=== PATIENT | male | born 1940 | race Caucasian/White ===

== ENCOUNTER 2021-07-26 14:33 | Outpatient (REF) | payer MEDICARE, SELFPAY ==
--- NOTE | 2021-07-27 11:56 | MHC.AU.ANO ---
Adult Audiological Evaluation Date of Visit: 07/26/21 Motorized Squad Captain Used: Not Applicable Reason for Appointment: Audiologic re-evaluation due to question of change in hearing ability. Has hearing been tested previously?: Yes Previous Hearing Test Results: 03/04/2019 [facility] Normal to borderline normal hearing thresholds 250-1000 Hz, sloping to a moderately-severe high frequency sensorineural hearing loss bilaterally. The left ear threshold at 1000 Hz was 15 dB poorer than the right ear. Speech understanding was 92% for both ears at 65 dB HL. Ear History: Unremarkable Medical History: Medical History: Heart problems with history of heart attacks (most recent occurred approximately 5 years ago), high cholesterol Medication List: Furosemide (known to be a potentially ototoxic medication), Pantoprazole, Warfarin, Atorvastatin, Aspirin, Digoxin Otoscopy: Right Ear: Partially occluded with cerumen Left Ear: Unremarkable Tympanometry: Tympanometry performed due to: To assess integrity of the middle ear system Right Ear: Normal Middle Ear System (Type A) Left Ear: Normal Middle Ear System (Type A) Otoacoustic Emissions Not performed at today's visit due to known bilateral sensorineural hearing loss Hearing Evaluation: Transducer(s) Used: Insert Earphones, Bone Conduction Method: Conventional Audiometry Stimuli Used: Pure Tones Right Ear: Description of Hearing: Normal to borderline normal hearing thresholds at 250-1500 Hz, dropping to a moderately-severe high frequency sensorineural hearing loss. Left Ear: Description of Hearing: Normal hearing thresholds 250 and 500 Hz, dropping to a moderately-severe high frequency sensorineural hearing loss. Speech Recognition Threshold (SRT): Method Used: Monitored Live Voice Stimuli Used: Spondee Words Right Ear: 10 dB HL Left Ear: 20 dB HL Word Discrimination: Method: Recorded Lists Word Lists Used: NU-6 Right Ear: 76% at 55 dB HL 96% at 60 dB HL Left Ear: 88% at 65 dB HL Comparison: Compared to most recent evaluation: Overall thresholds have decreased 5 dB for both ears with a 10 dB decrease for the left ear at 1000 Hz. Overall speech discrimination is stable. Recommendations: Patient does not feel they are ready for amplification at this time. Discussed and provided a handout regarding communication strategies to use to improve speech understanding. Advise using the [id number] drops Ear Wax M.D. to control cerumen accumulation. May need to consider cerumen removal by a physician if the drops do not dissolve the cerumen. Audiological re-evaluation in one year. Will send a reminder card. Diagnosis: Primary Diagnosis: H90.3 Bilateral Sensorineural Hearing Loss Services Performed: Comprehensive Audiological Evaluation (CPT 37365) Tympanometry (CPT 40188) Signature: Provider: Buddy Lowe, MINH-A
== END 2021-07-26 14:34 | disposition home or self-care (01) ==
LOC: HO.SH 14:33
PROVIDERS: Visit Provider Family Medicine
DX: H90.3 Sensorineural hearing loss, bilateral (principal)
CPT/HCPCS: 92557; 92567

== ENCOUNTER 2021-11-16 10:25 | Outpatient (REF) | payer MEDICARE, SELFPAY | END 2021-11-16 10:26 | disposition home or self-care (01) | LOC: HO.HAP 10:25 | PROVIDERS: Visit Provider Nurse Practitioner Family | DX: Z13.89 Encounter for screening for other disorder (principal) ==

== ENCOUNTER 2021-11-17 10:57 | Outpatient (REF) | payer SELFPAY ==
--- NOTE | 2021-11-17 13:33 | MHC.AU.HFU ---
Hearing Instrument Follow-Up- Binaural Date of Visit: 11/17/21 Follow-Up Summary: Fit with Trial Audeo P R aids programmed to LEVEL 50 product with #2 standard receivers and medium open domes. Removed the retention tails as they confused the patient. Ran feedback test. All features on default and deactivated volume control to make aids automatic. Had to instruct and have patient practice inserting the aids many times as he was having difficulty. Improved with practice. also practiced insertion. Reviewed chief architect use. Sign loaner agreement form. Recommendations: Recommendations (Other): Scheduled appointment for 11/28/2021. WILL CHANGE TRIAL AIDS TO LEVEL 90 AND TRY FOR ANOTHER WEEK. Diagnosis Code(s): Primary Diagnosis: H90.3 Bilateral Sensorineural Hearing Loss Services Performed: FREDERICK Non-Quantity Charges: HANC: NonBillable Event Signature: Provider: Bernabe Lowe, CCC-A
== END 2021-11-17 10:58 | disposition home or self-care (01) ==
LOC: HO.HAP 10:57
PROVIDERS: Visit Provider Nurse Practitioner Family
DX: Z13.89 Encounter for screening for other disorder (principal)

== ENCOUNTER 2021-11-28 13:06 | Outpatient (REF) | payer SELFPAY | END 2021-11-28 13:07 | disposition home or self-care (01) | LOC: HO.HAP 13:06 | PROVIDERS: Visit Provider Nurse Practitioner Family | DX: Z13.89 Encounter for screening for other disorder (principal) ==

== ENCOUNTER 2021-12-15 13:15 | Outpatient (REF) | payer SELFPAY ==
--- NOTE | 2021-12-18 13:13 | MHC.AU.HFU ---
Hearing Instrument Follow-Up- Binaural Date of Visit: 12/15/21 Follow-Up Summary: Patient reports he does not think the level 90 Audeo P aids are different enough from the 50 level during the past 2 weeks. The kitchen noises are just as sharp. He has not been in any noisy environments, but will be going to a restaurant over the weekend. Increased noise features and used auto fine tuning for bright/shrill decreasing one step. Recommendations: Recommendations (Other): Patient will call on 12/18/21 to discuss which level of technology to order. WILL INITIALLY FIT WITH DOMES AND TAKE IMPRESSIONS FOR [facility]SHELLS AT [facility]. Diagnosis Code(s): Primary Diagnosis: H90.3 Bilateral Sensorineural Hearing Loss Signature: Provider: Bernabe Lowe, CCC-A
== END 2021-12-15 13:16 | disposition home or self-care (01) ==
LOC: HO.HAP 13:15
PROVIDERS: Visit Provider Nurse Practitioner Family
DX: Z13.89 Encounter for screening for other disorder (principal)

== ENCOUNTER 2022-01-01 12:16 | Outpatient (REF) | payer SELFPAY | END 2022-01-01 12:17 | disposition home or self-care (01) | LOC: HO.HAP 12:16 | PROVIDERS: Visit Provider Family Medicine | DX: Z46.1 Encounter for fitting and adjustment of hearing aid (principal); H90.3 Sensorineural hearing loss, bilateral | CPT/HCPCS: 92591; V5261; V5299 ==

== ENCOUNTER 2022-01-26 11:39 | Outpatient (REF) | payer SELFPAY ==
--- NOTE | 2022-01-26 12:55 | MHC.AU.HFU ---
Hearing Instrument Follow-Up- Binaural Date of Visit: 01/26/22 Right Ear: Retail Management Trainee: Phonak Model: Audeo P90-R Serial Number: [id number] Repair Warranty: 03/19/2025 Loss and Damage Warranty: 03/19/2025 Battery Size: Rechargeable Color: Silver [employer]urt [employer] Operator: #2M Type of Dome: Type of Mold: Phonak Canal lock c-shell #[id number] warranty 05/10/2022 Type of Wax Guard: CeruShield Dispensed By: [facility] Date of Fittin01/01/2022 Left Ear: Retail Management Trainee: Phonak Model: Audeo P90-R Serial Number: [id number] Repair Warranty: 03/19/2025 Loss and Damage Warranty: 03/19/2025 Battery Size: Rechargeable Color: Silver [employer] Operator: #2 M Type of Mold: # [id number] Phonak canal lock c-shell warranty 05/10/2022 Type of Wax Guard: CeruShield Dispensed By: [facility] Date of Fittin01/01/2022 Follow-Up Summary: Fit the binaural canal lock c-shells. Changed acoustic parameters and Re-ran feedback test. Patient is now getting much more high frequency gain and no feedback. Datalogging only showed 1.5 hours average wearing time over past month. Patient reports he doesn't wear when home and alone. Extensively counseled about the need for every day, all day use for best benefit. Also is having some trouble using his home phone and wearing sunglasses. Practiced phone use moving the phone to be over his hearing aid microphone, OR to use the speaker phone. Also practiced putting sunglasses on with the hearing aids. Scheduled F/U appointment for 02/09/2022. He will cancel if doing well. Recommendations: Hearing instrument follow-up or maintenance as needed. Please contact our clinic with any questions or concerns. Diagnosis Code(s): Primary Diagnosis: H90.3 Bilateral Sensorineural Hearing Loss Signature:Provider: Buddy Lowe, [facility]
== END 2022-01-26 11:40 | disposition home or self-care (01) ==
LOC: HO.HAP 11:39
PROVIDERS: Visit Provider Nurse Practitioner Family
DX: Z13.89 Encounter for screening for other disorder (principal)

== ENCOUNTER 2022-02-09 09:56 | Outpatient (REF) | payer SELFPAY | END 2022-02-09 09:57 | disposition home or self-care (01) | LOC: HO.HAP 09:56 | PROVIDERS: Visit Provider Nurse Practitioner Family | DX: Z13.89 Encounter for screening for other disorder (principal) ==

== ENCOUNTER 2022-03-21 10:35 | Outpatient (REF) | payer SELFPAY | END 2022-03-21 10:36 | disposition home or self-care (01) | LOC: HO.HAP 10:35 | PROVIDERS: Visit Provider Family Medicine | DX: Z13.89 Encounter for screening for other disorder (principal) ==

== ENCOUNTER 2025-01-29 10:59 | Outpatient (REF) | payer SELFPAY ==
--- NOTE | 2025-01-29 12:21 | MHC.AU.HA3 ---
Hearing Instrument Follow-Up- Binaural Date of Visit: 01/29/25 Right Ear: Make, Model, Color, Serial Number: [id number] Project Manager Senior Repair Warranty: 03/19/2025 Project Manager Senior Loss and Damage Warranty: 03/19/2025 [facility] Service Plan: 03/19/25 Battery Size: Rechargeable Supervisor Frame Assembly/Slim Tube: #2M [place]/Dome/CShell/SlimTip:Phonak Canal lock c-shell #[id number] Warranty 05/10/2022 Type of Wax Guard: CeruShield Dispensed By: [facility] Date of Fittin01/01/2022 Left Ear: Make, Model, Color, Serial Number: [id number] Project Manager Senior Repair Warranty: 03/19/2025 Project Manager Senior Loss and Damage Warranty: 03/19/2025 [facility] Service Plan: 03/19/25 Battery Size: Rechargeable Supervisor Frame Assembly/Slim Tube: #2 M [place]/Dome/CShell/SlimTip: [id number] Phonak canal lock c-shell warranty 05/10/2022 Type of Wax Guard: CeruShield Dispensed By: [facility] Date of Fittin01/01/2022 Follow-Up Summary: Lucas is seen today reporting that he has not worn the hearing aids for about a year and did not wear them much prior to that. Notes loud sounds have always been too bothersome (children, music, restaurants). Reports he has come in because Alicia told him to come in before his warranty expires. Wants to make sure the volume is set right. 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 Recommended updated evaluation as this has not been done since 2020, advised to contact PCP for PO. Hearing aids to be adjusted with counseling and review of hearing aid use when back from repair, preferably in conjunction with evaluation. Recommendations: Recommendations: Patient will be contacted when materials have arrived. Return for evaluation and hearing aid fish bait picker. Diagnosis Code(s): Primary Diagnosis: H90.3 Bilateral Sensorineural Hearing Loss Signature: Provider: Brett Miller, [facility]
== END 2025-01-29 11:00 | disposition home or self-care (01) ==
LOC: HO.HAP 10:59
PROVIDERS: Visit Provider Family Medicine
DX: Z13.89 Encounter for screening for other disorder (principal)

== ENCOUNTER 2025-02-11 09:09 | Outpatient (REF) | payer MEDICARE, SELFPAY ==
--- OUTSIDE RECORDS SUMMARY | 2025-02-11 09:50 | XMS_ITS | Encounter Summary ---
Author Organization [facility] Address [address] [place] [address] Phone Care Team Providers Care Mobile Home Technician Name Role Phone Esvin Reardon MD Unavailable [phone] Heber Romero MD, MS Unavailable [phone] Patti Garnett NP Unavailable [phone] Patti Garnett NP Primary Care Provider Calderon Batista DO Primary Care Provider Encounter Details Date Type Department Care Team (Latest Contact Info) Description 09/23/2018 Transcribe Orders [facility] [address] [place] [address] [place] [address] [place] [address] [place] [address] Poisoning by cardiac-stimulant glycosides and drugs of similar action, accidental (unintentional), initial encounter (Primary Dx) Social History Tobacco Use Types Packs/Day Years Used Date Smoking Tobacco: Never Smokeless Tobacco: Never Sex and Gender Information Value Date Recorded Sex Assigned at Not on file Gender Identity Not on file Sexual Orientation Not on file documented as of this encounter Plan of Treatment Not on file documented as of this encounter Results * Digoxin level (09/23/2018 10:19 AM EST) DIGOXIN 1.3 0.9 - 2.0 ng/mL [facility] Blood 09/23/2018 10:1 9 AM EST 09/23/2018 10:24 AM EST Bruna Ena WARD LAB BLOOD ORDERABLES [facility] [address] [place] [address] documented in this encounter Visit Diagnoses Diagnosis Poisoning by cardiac-stimulant glycosides and drugs of similar action, accidental (unintentional), initial encounter- Primary documented in this encounter Additional Health Concerns Infection Onset Date Last Indicated Resolved Time CoV-Risk 11/19/2020 11/19/2020 11/29/2020 1:24 AM EST documented as of this encounter Care Teams Mobile Home Technician Relationship Specialty Start Date End Date Patti Garnett, [employer] [address] [place] [address] PCP - General 06/09/19 07/31/20 Calderon Batista DO [address] [place] [address] PCP - General Family Medicine 08/01/20 Esvin Reardon MD 22 [facility] [address] [place] [address] Historical LMR Provider 08/19/17 2 Heber Romero MD, MS [address] [place] [address] Historical LMR Provider 08/19/17 11/11/21 Patti Garnett, [employer] [address] [place] [address] [place] [address] Historical LMR Provider 08/19/17 documented as of this encounter Additional Source Comments The information contained in this document represents components of the legal health record. It is not the complete legal health record.[facility]
--- OUTSIDE RECORDS SUMMARY | 2025-02-11 09:50 | XMS_ITS | Clinical Summary ---
Author Organization [facility] Address [address] [place] [address] Phone Care Team Providers Care Clay Pigeon Loader Name Role Phone Calderon Batista DO Primary Care Provider [phone] Allergies Active Allergy Reactions Criticality Noted Date Comments Meperidine Anaphylaxis,Vomiting High 10/24/2017 Medications Medication Sig Dispensed Refills Start Date End Date Status aspirin 81 MG EC tablet Take 81 mg by mouth daily. Active furosemide (LASIX) 20 MG tablet Take 40 mg by mouth 2 (two) times a day. Active PANTOPRAZOLE SODIUM (PANTOPRAZOLE ORAL) Take 40 mg by mouth 2 (two) times a day. Active ATORVASTATIN CALCIUM (ATORVASTATIN ORAL) Take 40 mg by mouth daily. Active warfarin (COUMADIN) 1 MG tablet Take 1 mg by mouth as directed. Active digoxin (LANOXIN) 250 mcg tabletIndications:0.25 mg Take 125 mcg by mouth daily. Indications: 0.25 mg Active warfarin (COUMADIN) 5 MG tablet Take 5 mg by mouth as directed. Active gabapentin (NEURONTIN) 100 MG capsule Take 200 mg by mouth daily. Active losartan (COZAAR) 50 MG tablet Take 50 mg by mouth daily. Active Active Problems Problem Noted Date Diagnosed Date Coronary artery disease invo lving [place] coronary artery of [place] heart without angina pectoris 10/09/2018 Assessment & Plan (10/09/2018 5:39 PM EST): His CAT scan demonstrates nothing of concern that requires follow-up other than extensive coronary artery calcifications. We discussed this and he has known coronary artery disease. He will discuss it with Dr. Boone when he gets a chance. Patient is asymptomatic from a cardiac standpoint. Abnormal chest x-ray 09/09/2018 Assessment & Plan (09/09/2018 9:49 AM EST): Will plan for CT chest with IV contrast in 3 weeks after treatment with antibiotics. Patient has a history suggestive of bronchiectasis but the last CAT scan I seen does not demonstrated. That was not high resolution however. Major hemoptysis 09/09/2018 Assessment & Plan (10/09/2018 5:38 PM EST): I suspect he has bronchitis and an inclination to bleed based on his aspirin and Coumadin use. I do not believe I need to follow this any further. These call me if there has been a change in his status. Assessment & Plan (09/09/2018 9:49 AM EST): Suspect hemoptysis is related to smoldering infection in the setting of anticoagulation. Will treat with Augmentin for 10 days. Suspicious for anaerobes probably from dentition given the subacute nature of his illness. Current use of silver solution mixer anticoagulation 018 Assessment & Plan (10/09/2018 5:39 PM EST): Recommend holding anticoagulation if hemoptysis returns. Assessment & Plan (09/09/2018 9:50 AM EST): Would recommend holding anticoagulation if the hemoptysis continues or progresses. Will check a CBC prior to our next visit. Family History Medical History Relation Comments COPD Father Coronary artery disease Mother Family h istory of cardiovascular disease Relation Status Comments Father Mother Social History Tobacco Use Types Packs/Day Years Used Date Smoking Tobacco: Never Smokeless Tobacco: Never Alcohol Use Standard Drinks/Week Comments Not Currently 0 (1 standard drink = 0.6 oz pur e alcohol) Education Answer Date Recorded Are you interested in more education? Not on yung e 02/28/2023 Are you concerned about learning? Not on file 02/28/2023 No 02/28/2023 No 02/28/2023 Digital Access Answer Date Recorded No 04/01/2023 No 04/01/2023 Reliable internet access at home? Not on file 04/01/2023 Device with a working camera? Not on file Intimate Partner Violence Answer Date R ecorded Are you denied basic needs s uch as food, clothing, or medical care? No 07/05/2023 In the past 12 months have y ou been in a relationship with a person who hurts, threatens, or tries to control you? No 07/05/2023 Are you denied basic needs s uch as food, clothing, or medical care? No 07/05/2023 In the past 12 months have y ou been in a relationship with a person who hurts, threatens, or tries to control you? No 07/05/2023 Sex and Gender Information Value Date Recorded Sex Assigned at Not on file Gender Identity Not on file Sexual Orientation Not on file Last Filed Vital Signs Vital Sign Reading Time Taken Comments Blood Pressure 115/63 07/09/2023 8:39 AM EDT Pulse 56 07/09/2023 8:39 AM EDT Temperature 36.4 ??C (97.5 ??F) 07/09/2023 7:42 AM ED T Respiratory Rate 18 07/09/2023 8:24 AM EDT Oxygen Saturation 97% 07/09/2023 8:39 AM EDT Inhaled Oxygen Concentration - - Weight 90.7 kg (200 lb) 07/05/2023 1:12 PM EDT Height 182.9 cm (6') 07/05/2023 1:12 PM EDT Body Mass Index 27.12 07/05/2023 1:12 PM EDT Plan of Treatment Health Maintenance Due Date Last Done Comments DEPRESSION SCREENING 1952 HEPATITIS B SCREENING 1958 LIPID PANEL 1958 RSV VACCINE (1 - 1-dose 75+ series) 2015 CREATININE LEVEL 10/02/2019 10/02/2018 POTASSIUM LEVEL 10/02/2019 10/02/2018 INFLUENZA VACCINE (#1) 2024 3, 10/05/2022, 09/12/2021, Additional history exists COVID-19 VACCINE (2023- season) 2024 08/08/2022, 02/08/2022, 06/30/2021, Additional history exists Adult Td,Tdap Booster 09/28/2025 09/28/2015, 006 PNEUMOCOCCAL VACCINES (50+ years) Completed 08/15/2018, 09/28/2015, 08/26/2000 ZOSTER VACCINES Completed 05/10/2021, 05/2021, 02/20/2011 HEPATITIS A VACCINES Aged Out No long er eligible based on patient's age to complete this topic HEPATITIS B VACCINES Aged Out No long er eligible based on patient's age to complete this topic HIB VACCINES Aged Out No longer eligi ble based on patient's age to complete this topic MENINGOCOCCAL VACCINES (ACWY) Aged Out No longer eligible based on patient's age to complete this topic Medical Devices Implanted Type Area Issuing Operator Device Identifier Shelf Expiration Date Model / Serial / Lot Cardiac Stents Procedures Procedure Name Priority Date/Time Associated Diagnosis Comments BASIC METABOLIC PANEL Routine 10/02/2018 11:45 AM EST Major hemoptysis from Last 3 Months or Most Recently Relevant to Health Maintenance Results * (ABNORMAL) Basic metabolic panel (10/02/2018 11:45 AM EST) SODIUM 144 133 - 146 mmol/L [facility] CHLORIDE 100 96 - 108 mmol/L [facility] POTASSIUM 4.3 3.3 - 5.1 mmol/L [facility] CO2 28 21 - 35 mmol/L [facility] BUN 14 6 - 19 mg/dL [facility] CREATININE 1.00 0.5 - 1.5 mg/dL [facility] GLUCOSE 110(H) 70 - 99 mg/dL [facility] CALCIUM 9.3 8.4 - 10.3 mg/dL [facility] EGFR 72 >59 mL/min/1.7 3m2 [facility] Comment:If patient is black, multiply result by 1.159. Estimated glomerular filtration rate calculated using the CKD-EPI equation. ANION GAP 20 10 - 20 mmol/L [facility] Blood 10/02/2018 11:4 5 AM EST 10/02/2018 11:47 AM EST Slick Powers MD LAB BLOOD ORDERABLES [address] [address] from Last 3 Months or Most Recently Relevant to Health Maintenance Care Teams Clay Pigeon Loader Relationship Specialty Start Date End Date Calderon Batista DO [address] [place] [address] [email or web address] PCP - General Family Medicine 08/01/20 Additional Source Comments The information contained in this document represents components of the legal health record. It is not the complete legal health record.[facility]
--- OUTSIDE RECORDS SUMMARY | 2025-02-11 09:50 | XMS_ITS | Encounter Summary ---
Author Organization [facility] Address [address] [place] [address] [place] [address] Phone Care Team Providers Care Roofing Technician Name Role Phone Esvin Reardon MD Unavailable [phone] Heber Romero MD, MS Unavailable [phone] Patti Garnett NP Unavailable [phone] Calderon Batista DO Primary Care Provider [phone] Encounter Details Date Type Department Care Team (Late st Contact Info) Description 08/01/2020 Procedure Pass [facility] Admitting Dept Virtual Department [address] [place] [address] Social History Tobacco Use Types Packs/Day Years Used Date Smoking Tobacco: Never Smokeless Tobacco: Never Alcohol Use Standard Drinks/Week Comments Not Currently 0 (1 standard drink = 0.6 oz pur e alcohol) Sex and Gender Information Value Date Recorded Sex Assigned at Not on file Gender Identity Not on file Sexual Orientation Not on file documented as of this encounter Plan of Treatment Not on file documented as of this encounter Visit Diagnoses Not on filedocumented in this encounter Additional Health Concerns Infection Onset Date Last Indicated Resolved Time CoV-Risk 11/19/2020 11/19/2020 11/29/2020 1:24 AM EST documented as of this encounter Care Teams Roofing Technician Relationship Specialty Start Date End Date Calderon Batista DO [address] [place] [address] [email or web address] PCP - General Family Medicine 08/01/20 Esvin Reardon MD [address] [address] Historical LMR Provider 08/19/17 2 Heber Romero MD, MS [address] [place] [address] [email or web address] Historical LMR Provider 08/19/17 11/11/21 Patti Garnett NP [address] [place] [address] [place] [address] Historical LMR Provider 08/19/17 documented as of this encounter Additional Source Comments The information contained in this document represents components of the legal health record. It is not the complete legal health record.[facility]
--- OUTSIDE RECORDS SUMMARY | 2025-02-11 09:50 | XMS_ITS | Encounter Summary ---
Author Organization [facility] Address [address] [place] [address] Phone Care Team Providers Care Counseling Aide Name Role Phone Esvin Reardon MD Unavailable [phone] Heber Romero MD, MS Unavailable [phone] Patti Garnett NP Unavailable [phone] Patti Garnett NP Primary Care Provider [phone] Calderon Batista DO Primary Care Provider [phone] Encounter Details Date Type Department Care Team (Late st Contact Info) Description 09/24/2018 Ancillary Orders [facility],Outside Imaging [address] [place] [address] System, Provider Not In, [place] [address] Social History Tobacco Use Types Packs/Day Years Used Date Smoking Tobacco: Never Smokeless Tobacco: Never Sex and Gender Information Value Date Recorded Sex Assigned at Not on file Gender Identity Not on file Sexual Orientation Not on file documented as of this encounter Plan of Treatment Not on file documented as of this encounter Results * XR Chest Outside (No Interpretation) (09/02/2018 12:00 AM EDT) Narrative SYSTEMGENERATED, DOCUMENTATION - 09/24/2018 12:19 PM EST This study is for PACS storage only and not for interpretation. Provider Not In System PhD IMG OUTSIDE I TORREY W/OUT INTERPRETATION * XR Chest Outside (No Interpretation) (12/04/2016 12:00 AM EST) Narrative SYSTEMGENERATED, DOCUMENTATION - 09/24/2018 12:18 PM EST This study is for PACS storage only and not for interpretation. Provider Not In System PhD IMG OUTSIDE I MAGING W/OUT INTERPRETATION documented in this encounter Visit Diagnoses Not on filedocumented in this encounter Additional Health Concerns Infection Onset Date Last Indicated Resolved Time CoV-Risk 11/19/2020 11/19/2020 11/29/2020 1:24 AM EST documented as of this encounter Care Teams Counseling Aide Relationship Specialty Start Date End Date Patti Garnett, [place] [address] PCP - General 06/09/19 07/31/20 Calderon Batista DO [address] [place] [address] [email or web address] PCP - General Family Medicine 08/01/20 Esvin Reardon MD [address] [facility] [address] [place] [address] Historical LMR Provider 08/19/17 2 Heber Romero MD, MS [address] [place] [address] Historical LMR Provider 08/19/17 11/11/21 Patti Garnett, [place] [address] Historical LMR Provider 08/19/17 documented as of this encounter Additional Source Comments The information contained in this document represents components of the legal health record. It is not the complete legal health record.[facility]
--- OUTSIDE RECORDS SUMMARY | 2025-02-11 09:50 | XMS_ITS | Encounter Summary ---
Author Organization [facility] Address [address] [place] [address] [place] [address] Phone Care Team Providers Care Pigskin Trimmer Name Role Phone Esvin Reardon MD Unavailable [phone] Heber Romero MD, MS Unavailable Patti Garnett NP Unavailable [phone] Calderon Batista DO Primary Care Provider [phone] Encounter Details Date Type Department Care Team (Late st Contact Info) Description 11/18/2020 Transcribe Orders Virtual Department [address] [place] [address] Brigette Garcia, MIC [address] [place] [address] Nasal congestion (Primary Dx) Social History Tobacco Use Types [...] documented as of this encounter Results * COVID-19 PCR Order (11/19/2020 12:21 PM EST) COVID Testing Status Specimen received in analyzing lab. [facility] Symptomatic? YES [facility] Other 11/19/2020 12:2 1 PM EST 11/19/2020 5:27 PM EST Brigette Arguelles Harveykareen STAFF PHYSICAL THERAPY ASSISTANT BODY FLUIDS AND STOO LS ORDERABLES [facility] [address] [place] [address] [facility] [address] [place] [address] documented in this encounter Visit Diagnoses Diagnosis Nasal congestion- Primary Other diseases of nasal cavity and sinuses documented in this encounter Additional Health Concerns Infection Onset Date Last Indicated Resolved Time CoV-Risk 11/19/2020 11/19/2020 11/29/2020 1:24 AM EST documented as of this encounter Care Teams Pigskin Trimmer Relationship Specialty Start Date End Date Calderon Batista DO [address] [place] [address] [email or web address] PCP - General Family Medicine 08/01/20 Esvin Reardon MD [address] [address] Historical LMR Provider 08/19/17 2 Heber Romero MD, MS [address] [place] [address] [email or web address] Historical LMR Provider 08/19/17 11/11/21 Patti Garnett NP [address] [place] [address] [place] [address] Historical LMR Provider 08/19/17 documented as of this encounter Additional Source Comments The information contained in this document represents components of the legal health record. It is not the complete legal health record.[facility]
--- OUTSIDE RECORDS SUMMARY | 2025-02-11 09:50 | XMS_ITS | Encounter Summary ---
Author Organization [facility] Address [address] [place] [address] Phone Care Team Providers Care Pension Fund Manager Name Role Phone Calderon Batista DO Primary Care Provider [phone] Encounter Details Date Type Department Care Team (Late st Contact Info) Description 07/09/2023 Procedure Pass [facility] Endoscopy Admitting Dept Virtual Department [address] [place] [address] Social History Tobacco Use Types Packs/Day Years [...] Diagnoses Not on filedocumented in this encounter Care Teams Pension Fund Manager Relationship Specialty Start Date End Date Calderon Batista DO [address] [place] [address] [email or web address] PCP - General Family Medicine 08/01/20 documented as of this encounter Additional Source Comments The information contained in this document represents components of the legal health record. It is not the complete legal health record.[facility]
--- NOTE | 2025-02-11 11:19 | MHC.AU.HA3 ---
Hearing Instrument Follow-Up- Binaural Date of Visit: 02/11/25 Right Ear: Milind, Model, Color, Serial Number: Brianna Brooks [id number]-[id number] SN: [id number] Color: Silver Burt [employer] Deliverer Repair Warranty: 03/19/2025 Newspaper Deliverer Loss and Damage Warranty: 03/19/2025 [facility] Service Plan: 03/19/2025 Battery Size: Rechargeable Consultant/Slim Tube: 2M Earmold/Dome/CShell/SlimTip:c-shell w/ canal lock SN: [id number] Type of Wax Guard: CeruStop Dispensed By: [facility] Date of Fittin01/01/2022 Left Ear: Milind, Model, Color, Serial Number: Brianna Brooks P90-R SN: [id number] Color: Silver Burt Newsp[employer] Deliverer Repair Warranty: 03/19/2025 Newspaper Deliverer Loss and Damage Warranty: 03/19/2025 [facility] Service Plan: 03/19/2025 Battery Size: Rechargeable Consultant/Slim Tube: 2M Earmold/Dome/CShell/SlimTip: c-shell w/ canal lock SN: [id number] Type of Wax Guard: CeruStop Dispensed By: [facility] Date of Fittin01/01/2022 Follow-Up Summary: Updated hearing test - see audio. Picked up HAs/c-shells. Has never worn HAs consistently, barely used in past year. Reportedly hears fine, and sometimes better, without them. Settings from 2021 significantly underfit. Reprogrammed to updated audio, initial fit settings, added acoustic code for c-shells. Own voice loud but tolerable. Discussed importance of daily, consistent use in acclimating to HAs and balance between comfort and audibility. Reviewed manually turning on/off and VC use. Lucas will call if issues arise to schedule appointment prior to warranty expiring. Advised [email or web address] once warranty expires in March. Recommendations: Hearing instrument follow-up or maintenance as needed. Please contact our clinic with any questions or concerns. Diagnosis Code(s): Primary Diagnosis: H90.3 Bilateral Sensorineural Hearing Loss Signature: Provider: Brett Stoll, [facility]
== END 2025-02-11 09:10 | disposition home or self-care (01) ==
LOC: HO.SH 09:09
PROVIDERS: Visit Provider Family Medicine
DX: Z01.118 Encounter for examination of ears and hearing with other abnormal findings (principal); H90.3 Sensorineural hearing loss, bilateral
CPT/HCPCS: 92552; 92556

== ENCOUNTER 2025-02-16 12:49 | Outpatient (REF) | payer SELFPAY ==
--- OUTSIDE RECORDS SUMMARY | 2025-02-16 15:39 | XMS_ITS | Encounter Summary ---
Author Organization [facility] Address [address] [place] [address] [place] [address] Phone Care Team Providers Care Building Rental Superintendent Name Role Phone Esvin Reardon MD Unavailable [phone] Heber Romero MD, MS Unavailable [phone] Patti Garnett NP Unavailable [phone] Calderon Batista DO Primary Care Provider [phone] Encounter Details Date Type Department Care Team (Late st Contact Info) Description 11/18/2020 Transcribe Orders Virtual Department [address] [place] [address] Brigette Garcia, MIC [address] [facility] [place] [address] Nasal congestion (Primary Dx) Social History Tobacco [...] Testing Status Specimen received in analyzing lab. [facility] Symptomatic? YES [facility] Other 11/19/2020 12:2 1 PM EST 11/19/2020 5:27 PM EST Brigette Arguelles Harveykareen EXTRUSION LINE OPERATOR BODY FLUIDS AND STOO LS ORDERABLES [facility] [address] [place] [address] [facility] [address] [place] [address] documented in this encounter Visit Diagnoses Diagnosis Nasal congestion- Primary Other diseases of nasal cavity and sinuses documented in this encounter Additional Health Concerns Infection Onset Date Last Indicated Resolved Time CoV-Risk 11/19/2020 11/19/2020 11/29/2020 1:24 AM EST documented as of this encounter Care Teams Building Rental Superintendent Relationship Specialty Start Date End Date Calderon Batista DO 22 [place] [address] [email or web address] PCP - General Family Medicine 08/01/20 Esvin Reardon MD [address] [address] Historical LMR Provider 08/19/17 2 Heber Romero MD, MS [address] [place] [address] [email or web address] Historical LMR Provider 08/19/17 11/11/21 Patti Garnett NP [address] [place] [address] [place] [address] Historical LMR Provider 08/19/17 documented as of this encounter Additional Source Comments The information contained in this document represents components of the legal health record. It is not the complete legal health record.[facility]
--- OUTSIDE RECORDS SUMMARY | 2025-02-16 15:40 | XMS_ITS | Encounter Summary ---
Author Organization [facility] Address [address] [place] [address] Phone Care Team Providers Care Transmission And Protection Engineer Name Role Phone Calderon Batista DO Primary Care Provider [phone] Encounter Details Date Type Department Care Team (Late st Contact Info) Description 07/09/2023 Procedure Pass [facility] Endoscopy Admitting Dept Virtual Department [address] [place] [address] Social History Tobacco Use Types Packs/Day Years [...] on filedocumented in this encounter Care Teams Transmission And Protection Engineer Relationship Specialty Start Date End Date Calderon Batista DO [address] [place] [address] [email or web address] PCP - General Family Medicine 08/01/20 documented as of this encounter Additional Source Comments The information contained in this document represents components of the legal health record. It is not the complete legal health record.[facility]
--- OUTSIDE RECORDS SUMMARY | 2025-02-16 15:40 | XMS_ITS | Encounter Summary ---
Author Organization [facility] Address [address] [place] [address] [place] [address] Phone Care Team Providers Care Shutdown Coordinator Name Role Phone Esvin Reardon MD Unavailable [phone] Heber Romero MD, MS Unavailable [phone] Patti Garnett NP Unavailable [phone] Calderon Batista DO Primary Care Provider [phone] Encounter Details Date Type Department Care Team (Late st Contact Info) Description 08/01/2020 Procedure Pass [facility] Endoscopy Admitting Dept Virtual Department [address] [place] [address] Social History Tobacco Use Types Packs/Day Years [...] documented as of this encounter Care Teams Shutdown Coordinator Relationship Specialty Start Date End Date Calderon Batista DO [address] [place] [address] [email or web address] PCP - General Family Medicine 08/01/20 Esvin Reardon MD [address] [address] Historical LMR Provider 08/19/17 2 Heber Romero MD, MS [address] [place] [address] [email or web address] Historical LMR Provider 08/19/17 11/11/21 Patti Garnett NP [address] [place] [address] [place] [address] Historical LMR Provider 08/19/17 documented as of this encounter Additional Source Comments The information contained in this document represents components of the legal health record. It is not the complete legal health record.[facility]
--- OUTSIDE RECORDS SUMMARY | 2025-02-16 15:40 | XMS_ITS | Encounter Summary ---
Author Organization [facility] Address [address] [place] [address] Phone Care Team Providers Care Hydro Generation Supervisor Name Role Phone Esvin Reardon MD Unavailable [phone] Heber Romero MD, MS Unavailable [phone] Patti Garnett NP Unavailable [phone] Patti Garnett NP Primary Care Provider [phone] Calderon Batista DO Primary Care Provider [phone] Encounter Details Date Type Department Care Team (Late st Contact Info) Description 09/24/2018 Ancillary Orders [facility] Imaging [address] [place] [address] System, Provider Not In, [place] [address] Social History Tobacco Use Types Packs/Day Years [...] documented as of this encounter Care Teams Hydro Generation Supervisor Relationship Specialty Start Date End Date Patti Garnett, [place] [address] PCP - General 06/09/19 07/31/20 Calderon Batista DO 22 [place] [address] [email or web address] PCP - General Family Medicine 08/01/20 Esvin Reardon MD 22 [facility] [address] [place] [address] Historical LMR Provider 08/19/17 2 Heber Romero MD, MS [address] [place] [address] Historical LMR Provider 08/19/17 11/11/21 Patti Garnett, [place] [address] Historical LMR Provider 08/19/17 documented as of this encounter Additional Source Comments The information contained in this document represents components of the legal health record. It is not the complete legal health record.[facility]
--- OUTSIDE RECORDS SUMMARY | 2025-02-16 15:40 | XMS_ITS | Encounter Summary ---
Author Organization [facility] Address [address] [place] [address] Phone Care Team Providers Care Sericulture Teacher Name Role Phone Esvin Reardon MD Unavailable [phone] Heber Romero MD, MS Unavailable Patti Garnett NP Unavailable Patti Garnett NP Primary Care Provider Calderon Batista DO Primary Care Provider Encounter Details Date Type Department Care Team (Latest Contact Info) Description 09/23/2018 Transcribe [address] [facility] [address] [place] [address] [place] [address] Bruna Almonte [place] [address] [place] [address] Poisoning by cardiac-stimulant glycosides and drugs of [...] EST) DIGOXIN 1.3 0.9 - 2.0 ng/mL [facility] Blood 09/23/2018 10:1 9 AM EST 09/23/2018 10:24 AM EST Bruna Ena WARD LAB BLOOD ORDERABLES [facility] [address] [place] [address] documented in this encounter Visit Diagnoses Diagnosis Poisoning by cardiac-stimulant glycosides and drugs of similar action, accidental (unintentional), initial encounter- Primary documented in this encounter Additional Health Concerns Infection Onset Date Last Indicated Resolved Time CoV-Risk 11/19/2020 11/19/2020 11/29/2020 1:24 AM EST documented as of this encounter Care Teams Sericulture Teacher Relationship Specialty Start Date End Date Patti Garnett, SHOP FITTER [address] [place] [address] PCP - General 06/09/19 07/31/20 Calderon Batista DO 22 [place] [address] [email or web address] PCP - General Family Medicine 08/01/20 Esvin Reardon MD 22 [facility] [address] [place] [address] Historical LMR Provider 08/19/17 2 Heber Romero MD, MS [address] [place] [address] Historical LMR Provider 08/19/17 11/11/21 Patti Garnett, SHOP FITTER [address] [place] [address] [place] [address] Historical LMR Provider 08/19/17 documented as of this encounter Additional Source Comments The information contained in this document represents components of the legal health record. It is not the complete legal health record.[facility]
--- OUTSIDE RECORDS SUMMARY | 2025-02-16 15:40 | XMS_ITS | Clinical Summary ---
Author Organization [facility] Address [address] [facility] [address] [place] [address] Phone Care Team Providers Care Carbon Sequestration Plant Operator Name Role Phone Calderon Batista DO Primary Care Provider [phone] Allergies Active Allergy Reactions Criticality Noted Date [...] Diagnosed Date Coronary artery disease invo lving [place] coronary artery of [place] heart without angina pectoris 10/09/2018 Assessment & [...] nature of his illness. Current use of manager long term care anticoagulation 018 Assessment & Plan (10/09/2018 5:39 [...] this topic Medical Devices Implanted Type Area [id number] Sales Professional Device Identifier Shelf Expiration Date Model / Serial / Lot Cardiac Stents Procedures Procedure Name Priority Date/Time Associated Diagnosis Comments BASIC METABOLIC PANEL Routine 10/02/2018 11:45 AM EST Major hemoptysis from Last 3 Months or Most Recently Relevant to Health Maintenance Results * (ABNORMAL) Basic metabolic panel (10/02/2018 11:45 AM EST) SODIUM 144 133 - 146 mmol/L [facility] CHLORIDE 100 96 - 108 mmol/L [facility] POTASSIUM 4.3 3.3 - 5.1 mmol/L [facility] CO2 28 21 - 35 mmol/L [facility] BUN 14 6 - 19 mg/dL [facility] CREATININE 1.00 0.5 - 1.5 mg/dL [facility] GLUCOSE 110(H) 70 - 99 mg/dL [facility] CALCIUM 9.3 8.4 - 10.3 mg/dL [facility] EGFR 72 >59 mL/min/1.7 3m2 [facility] Comment:If patient is black, multiply result by 1.159. Estimated glomerular filtration rate calculated using the CKD-EPI equation. ANION GAP 20 10 - 20 mmol/L [facility] Blood 10/02/2018 11:4 5 AM EST 10/02/2018 11:47 AM EST Slick Powers MD LAB BLOOD ORDERABLES [address] [address] from Last 3 Months or Most Recently Relevant to Health Maintenance Care Teams Carbon Sequestration Plant Operator Relationship Specialty Start Date End Date Calderon Batista DO [address] [place] [address] [email or web address] PCP - General Family Medicine 08/01/20 Additional Source Comments The information contained in this document represents components of the legal health record. It is not the complete legal health record.[facility]
== END 2025-02-16 12:50 | disposition home or self-care (01) ==
LOC: HO.HAP 12:49
PROVIDERS: Visit Provider Family Medicine
DX: Z13.89 Encounter for screening for other disorder (principal)

== ENCOUNTER 2025-03-18 09:49 | Outpatient (REF) | payer SELFPAY ==
--- OUTSIDE RECORDS SUMMARY | 2025-03-18 10:42 | XMS_ITS | Encounter Summary ---
Author Organization [facility] Address [address] [place] [address] Phone Care Team Providers Care Parcel Post Officer Name Role Phone Calderon Batista DO Primary Care Provider [phone] Reason for Referral * Consultation (Within 3 days (urgent)) - Closed Specialty Diagnoses / Procedures Referred By Kristy yi Referred To Contact Calderon Batista DO Phone: tel: fax: mailto: Unknown, Unknown, Referral ID Status Reason Start Date Expiration Date Visits Re quested Visits Authorized [id number] Closed 03/15/2025 03/15/2026 1 1 Reason for Visit * Reason Comments Post Discharge Follow Up Call (Ed) for back pain Encounter Details Date Type Department Care Team (Late st Contact Info) Description 03/15/2025 10:20 AM EDT Office Visit [facility] [address] [place] [address] Calderon Batista DO [address] [place] [address] Other fracture of T7-t8 thoracic vertebra, initial encounter for closed fracture (Primary Dx); 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 Not on yung e 02/28/2023 Are you concerned about learning? Not on file 02/28/2023 No 02/28/2023 No 02/28/2023 Food Answer Date Recorded Within the past 6 months we worried whether our food would run out before we got money to buy more. Never True 03/08/2025 Within the past 6 months the food we bought just didn't last and we didn't have enough money to get more. Never True Residential Stability Answer Date Recor ded What is your housing situation today? I have robby sing 03/08/2025 How many times have you move d in the past 12 months? Zero (I did not move) 03/08/2025 Paying for Meds Answer Date Recorded Do you have trouble paying for medicines? No 03/08/2025 Paying Utility Bills Answer Date Record ed Do you have trouble paying your heating or elect ricity bill? No 03/08/2025 Transportation Answer Date Recorded Has the lack of transportati on kept you from medical appointments or from getting medications? No 03/08/2025 Digital Access Answer Date Recorded No 03/08/2025 Yes 03/08/2025 Do you have reliable internet access at home? Ye s 03/08/2025 Do you have a device (e.g., phone, tablet, computer) with a working camera? Yes 03/08/2025 Intimate Partner Violence Answer Date R ecorded Are you denied basic needs s uch as food, clothing, or medical care? No 03/08/2025 In the past 12 months have y ou been in a relationship with a person who hurts, threatens, or tries to control you? No 03/08/2025 Are you denied basic needs s uch as food, clothing, or medical care? No 03/08/2025 In the past 12 months have y ou been in a relationship with a person who hurts, threatens, or tries to control you? No 03/08/2025 Sex and Gender Information Value Date Recorded Sex Assigned at Male 03/08/2025 1:53 PM EDT Legal Sex Male 7:19 PM EST Gender Identity Male 03/08/2025 1:53 PM EDT Sexual Orientation Straight 03/08/2025 1: 53 PM EDT documented as of this encounter Last Filed Vital Signs Vital Sign Reading Time Taken Comments Blood Pressure 120/79 03/15/2025 10:11 AM EDT Pulse 84 03/15/2025 10:11 AM EDT Temperature 36.4 ??C (97.5 ??F) 03/15/2025 10:11 AM E DT Respiratory Rate - - Oxygen Saturation 98% 03/15/2025 10:11 AM EDT Inhaled Oxygen Concentration - - Weight 97 kg (213 lb 12.8 oz) 03/15/2025 10:11 A M EDT Height 182.9 cm (6' 0.01 ) 03/15/2025 10:11 AM E DT Body Mass Index 28.99 03/15/2025 10:11 AM EDT documented in this encounter Patient Instructions * Patient Instructions* Calderon Batista DO - 03/15/2025 10:20 AM EDT Continue with lidocaine and Tylenol for back pain appt with orthopedics as planned Con't rest of medication documented in this encounter Progress Notes * Calderon Batista DO - 03/15/2025 10:20 AM EDT Subjective: ER follow-up from fall on 03/06 ER eval 03/08 Jesenia History of Present Illness Lucas Mathews is an 84-year-old male who presents with back pain following a fall. He experienced a fall in his living room, hitting his head against glass sliding doors without losing consciousness. Initially, he did not feel significant pain, but by the next day, pain developed, particularly when rolling in bed or getting up. The pain intensified over the following days, located across his back and chest, especially when breathing or moving. Initially, the pain was severe enou gh to prevent sleep, but it has since become more tolerable. He manages the pain with [id number] Tylenol and lidocaine patches, which now allows him to sleep better. He continues to take gabapentin at night for paresthesias in his legs which has been taking for over a year that is unchanged since his fall He has been experiencing issues with his warfarin supply, receiving fewer tablets than prescribed, and is in contact with his auto hiker and pharmacy to resolve this. Continues the furosemide in the morning for leg swelling. Socially, he has been home alone while his was away, but neighbors check on him regularly. He has a supportive community that assists him when needed. No new neurological symptoms are present. 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 10/09/2018 Abnormal chest x-ray 09/09/2018 Major hemoptysis 09/09/2018 Current use of fpc anticoagulation 09/09/2018 Intention tremor 09/02/2018 Noel's esophagus 09/02/2018 Carcinoma in situ of skin of upper extremity 09/03/2017 Obstructive sleep apnea of adult 08/11/2016 Hiatal hernia 04/30/2016 Benign prostatic hyperplasia 12/10/2007 Pure hypercholesterolemia 09/08/2004 Anemia of chronic disease 01/11/2003 Mixed hyperlipidemia 09/15/2002 Atrial fibrillation, chronic 10/01/2000 Review of Systems See HPI above Review of Systems Vitals: 03/15/25 1011 BP: 120/79 BP Location: Right arm Patient Position: Sitting Cuff Size: Medium Pulse: 84 Temp: 36.4 ??C (97.5 ??F) TempSrc: Temporal SpO2: 98% Weight: 97 kg (213 lb 12.8 oz) Height: 182.9 cm (6' 0.01 ) Body mass index is 28.99 kg/m??. Objective: Physical Exam CHEST: Lungs clear to auscultation bilaterally. CARDIOVASCULAR: Heart regular rate and rhythm. Physical Exam Tenderness T7-8 mid line mild Patient walks with a cane slightly wide-based slight shuffling gait Data Review 1. Other fracture of T7-t8 thoracic vertebra, initial encounter for closed fracture (Primary) Assessment & Plan: Patient eval with [facility] Discussed options regarding pain management as pain is improved now with Tylenol and lidocaine he is also on gabapentin for neuropathy discussed that adding additional pain medicines can increase risk of confusion and falls since his pain is better we continue with current medication 2. 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 Obstructive sleep apnea of adult Assessment & Plan: Stable same plan 4. Essential hypertension Assessment & Plan: At goal continue current medication check BP at home record bring to next visit 5. Cognitive impairment Assessment & Plan: Recently started on memantine continue current treatment for now 6. Fall at home, initial encounter Assessment & Plan: No LOC s/p ER eval thoracic Fx as above 7. Atrial fibrillation, chronic Assessment & Plan: Appears in sinus rhythm today continue current medications follow-up with auto hiker plan Other orders - External Referral to Orthopedics ([facility] Assessment & Plan Back pain Acute exacerbation of chronic back pain post-fall, tenderness at T7-T8, improved with acetaminophenand lidocaine but persistent. - Continue acetaminophen as needed. - Continue lidocaine patches, 12 hours on/off. - Refer to orthopedics at [facility]. - Avoid additional analgesics due to drowsiness and fall risk. Chronic pain Chronic pain managed with gabapentin, increased to three tablets at night, efficacy uncertain. - Continue gabapentin, three tablets at night. - Review medication regimen at next visit. Peripheral edema Chronic peripheral edema in left leg and ankle, stable continue furosemide. - Continue current diuretic regimen. Atrial fibrillation Atrial fibrillation managed with warfarin, issues with prescription refills and quantities. - Continue warfarin as prescribed. - Coordinate with auto hiker and pharmacy for correct prescription quantities. Memory loss prevention On memantine for memory loss prevention, no noticeable effects, continue for now Return in about 1 month (around 04/15/2025) for f/u appt 1 hr duration . Patient Instructions Continue with lidocaine and Tylenol for back pain appt with orthopedics as planned Con't rest of medication I obtained verbal consent from the patient or their proxy to record this visit for purposes of producing a draft of the encounter documentation. documented in this encounter Miscellaneous Notes * Assessment & Plan Note - Calderon Batista DO - 03/15/2025 11:24 AM EDT Associated Problem(s): Atrial fibrillation, chronic Appears in sinus rhythm today continue current medications follow-up with auto hiker plan * Assessment & Plan Note - Calderon Batista DO - 03/15/2025 10:29 AM EDT Associated Problem(s): Fall at home, initial encounter No LOC s/p ER eval thoracic Fx as above * Assessment & Plan Note - Calderon Batista DO - 03/15/2025 10:21 AM EDT Associated Problem(s): Cognitive impairment Recently started on memantine continue current treatment for now * Assessment & Plan Note - Calderon Batista DO - 03/15/2025 8:17 AM EDT Associated Problem(s): Essential hypertension At goal continue current medication check BP at home record bring to next visit * Assessment & Plan Note - Calderon Batista DO - 03/15/2025 8:15 AM EDT Associated Problem(s): Obstructive sleep apnea of adult Stable same plan * Assessment & Plan Note - Calderon Batista DO - 03/15/2025 8:15 AM EDT Associated Problem(s): 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 Stable followed by cardiology continue idealize BP and lipids * Assessment & Plan Note - Calderon Batista DO - 03/15/2025 8:02 AM EDT Associated Problem(s): Other fracture of T7-t8 thoracic vertebra, initial encounter for closed fracture Patient eval with [facility] Discussed options regarding pain management as pain is improved now with Tylenol and lidocaine he is also on gabapentin for neuropathy discussed that adding additional pain medicines can increase risk of confusion and falls since his pain is better we continue with current medication documented in this encounter Plan of Treatment Upcoming Encounters Date Type Department Care Team (Late st Contact Info) Description 04/15/2025 10:20 AM EDT Office Visit [address] [address] Calderon Batista DO [address] [place] [email or web address] Scheduled Referrals Name Type Priority Associated Diagnoses Order Schedule External Referral to Orthopedics ([facility] Outpatient Referral Routine Ordered: 03/15/2025 documented as of this encounter Visit Diagnoses Diagnosis Other fracture of T7-t8 thoracic vertebra, initial encounter for closed fracture- Primary 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 Obstructive sleep apnea of adult Essential hypertension Unspecified essential hypertension Cognitive impairment Unspecified persistent mental disorders due to conditions classified elsewhere Fall at home, initial encounter Atrial fibrillation, chronic documented in this encounter Care Teams Parcel Post Officer Relationship Specialty Start Date End Date Calderon Batista DO [address] [place] [address] [email or web address] PCP - General Family Medicine 08/01/20 documented as of this encounter Additional Source Comments The information contained in this document represents components of the legal health record. It is not the complete legal health record.[facility]
--- OUTSIDE RECORDS SUMMARY | 2025-03-18 10:42 | XMS_ITS | Encounter Summary ---
Author Organization [facility] Address [address] [place] [address] [place] [address] Phone Care Team Providers Care Alignment Specialist Name Role Phone Esvin Reardon MD Unavailable [phone] Heber Romero MD, MS Unavailable [phone] Patti Garnett NP Unavailable [phone] Calderon Batista DO Primary Care Provider [phone] Encounter Details Date Type Department Care Team (Late st Contact Info) Description 08/01/2020 Procedure Pass [facility] Admitting Dept Virtual Department [address] [place] [address] Social History Tobacco Use Types Packs/Day Years [...] PM EDT documented as of this encounter Plan of Treatment Upcoming Encounters Date Type Department Care Team (Late st Contact Info) Description 04/15/2025 10:20 AM EDT Office Visit [facility] [address] [place] [address] Calderon Batista DO [address] [place] [address] [email or web address] documented as of this encounter Visit Diagnoses Not on filedocumented in this encounter Additional Health Concerns Infection Onset Date Last Indicated Resolved Time CoV-Risk 11/19/2020 11/19/2020 11/29/2020 1:24 AM EST documented as of this encounter Care Teams Alignment Specialist Relationship Specialty Start Date End Date Calderon Batista DO [address] [place] [address] PCP - General Family Medicine 08/01/20 Esvin Reardon MD [address] [address] Historical LMR Provider 08/19/17 2 Heber Romero MD, MS [address] [place] [address] [email or web address] Historical LMR Provider 08/19/17 11/11/21 Patti Garnett NP [address] [place] [address] [place] [address] Historical LMR Provider 08/19/17 2 documented as of this encounter Additional Source Comments The information contained in this document represents components of the legal health record. It is not the complete legal health record.[facility]
--- OUTSIDE RECORDS SUMMARY | 2025-03-18 10:42 | XMS_ITS | Encounter Summary ---
Author Organization [facility] Address [address] [place] [address] Phone Care Team Providers Care Imcu Nurse Name Role Phone Esvin Reardon MD Unavailable [phone] Heber Romero MD, MS Unavailable [phone] Patti Garnett NP Unavailable [phone] Patti Garnett NP Primary Care Provider [phone] Calderon Batista DO Primary Care Provider [phone] Encounter Details Date Type Department Care Team (Late st Contact Info) Description 09/24/2018 Ancillary Orders [facility] [address] [place] [address] System, Provider Not In, [place] [address] Social History Tobacco Use Types Packs/Day Years [...] Description 04/15/2025 10:20 AM EDT Office Visit [address] [place] [address] Calderon Batista DO [address] [place] [address] documented as of this encounter Results * XR Chest Outside (No Interpretation) (09/02/2018 12:00 AM EDT) Narrative SYSTEMGENERATED, DOCUMENTATION - 09/24/2018 12:19 PM EST This study is for PACS storage only and not for interpretation. us Provider Not In System PhD IMG OUTSIDE IMAGING W /OUT INTERPRETATION Final Result * XR Chest Outside (No Interpretation) (12/04/2016 12:00 AM EST) Narrative SYSTEMGENERATED, DOCUMENTATION - 09/24/2018 12:18 PM EST This study is for PACS storage only and not for interpretation. us Provider Not In System PhD IMG OUTSIDE IMAGING W /OUT INTERPRETATION Final Result documented in this encounter Visit Diagnoses Not on filedocumented in this encounter Additional Health Concerns Infection Onset Date Last Indicated Resolved Time CoV-Risk 11/19/2020 11/19/2020 11/29/2020 1:24 AM EST documented as of this encounter Care Teams Imcu Nurse Relationship Specialty Start Date End Date Patti Garnett NP [address] [place] [address] [place] [address] PCP - General 06/09/19 07/31/20 Calderon Batista DO [address] [place] [address] PCP - General Family Medicine 08/01/20 Esvin Reardon MD [address] [place] [address] [address] [place] [address] Historical LMR Provider 08/19/17 2 Heber Romero MD, MS [address] [place] [address] [email or web address] Historical LMR Provider 08/19/17 11/11/21 Patti Garnett NP [address] [place] [address] [place] [address] Historical LMR Provider 08/19/17 2 documented as of this encounter Additional Source Comments The information contained in this document represents components of the legal health record. It is not the complete legal health record.[facility]
--- OUTSIDE RECORDS SUMMARY | 2025-03-18 10:42 | XMS_ITS | Encounter Summary ---
Author Organization [facility] Address [address] [place] [address] [place] [address] Phone Care Team Providers Care Production Quality Analyst Name Role Phone Calderon Batista DO Primary Care Provider [phone] Encounter Details Date Type Department Care Team (Late st Contact Info) Description 03/08/2025 Procedure Pass [facility] Scan - [address] [address] Social History Tobacco Use Types Packs/Day Years [...] PM EDT documented as of this encounter Functional Status * Calculated C-SSRS Risk Score (Lifetime/Recent) Answer Date of Assessment Author No Risk Indicated 03/08/2025 4:51 PM EDT Susan Cazares RN * [place] Suicide Severity Rating Scale (Screener/Recent Self-Report) Question Answer Date of Assessment Author 1. Wish to be (Past 1 Month) No 03/08/2025 4:51 PM EDT Susan Cazares, SY 2. Non-Specific Active Suicidal Thoughts (Past 1 Month) No 03/08/2025 4:51 PM EDT Susan Cazares, SY 6. Suicidal Behavior (Lifetime) No 03/08/2025 4:51 PM EDT Susan Cazares RN documented as of this encounter Plan of Treatment Upcoming Encounters Date Type Department Care Team (Late st Contact Info) Description 04/15/2025 10:20 AM EDT Office Visit [facility] [address] [place] [address] [place] [address] [email or web address] documented as of this encounter Visit Diagnoses Not on filedocumented in this encounter Care Teams Production Quality Analyst Relationship Specialty Start Date End Date [place] [address] [email or web address] PCP - General Family Medicine 08/01/20 documented as of this encounter Additional Source Comments The information contained in this document represents components of the legal health record. It is not the complete legal health record.[facility]
--- OUTSIDE RECORDS SUMMARY | 2025-03-18 10:42 | XMS_ITS | Encounter Summary ---
Author Organization [facility] Address [address] [place] [address] Phone Care Team Providers Care Register Repairer Name Role Phone Esvin Reardon MD Unavailable [phone] Heber Romero MD, MS Unavailable [phone] Patti Garnett NP Unavailable [phone] Patti Garnett NP Primary Care Provider Calderon Batista DO Primary Care Provider [phone] Encounter Details Date Type Department Care Team (Latest Contact Info) Description 09/23/2018 Transcribe Orders [address] [place] [address] [place], [place] [facility] [place] [address] Poisoning by cardiac-stimulant glycosides and drugs of [...] Description 04/15/2025 10:20 AM EDT Office Visit [facility] [address] [place] [address] [place] [address] [email or web address] documented as of this encounter Results * Digoxin level (09/23/2018 10:19 AM EST) DIGOXIN 1.3 0.9 - 2.0 ng/mL [facility] Blood 09/23/2018 10:1 9 AM EST 09/23/2018 10:24 AM EST us Br[facility] BLOOD ORDERABLES Final Resu lt [facility] [address] [place] [address] documented in this encounter Visit Diagnoses Diagnosis Poisoning by cardiac-stimulant glycosides and drugs of similar action, accidental (unintentional), initial encounter- Primary documented in this encounter Additional Health Concerns Infection Onset Date Last Indicated Resolved Time CoV-Risk 11/19/2020 11/19/2020 11/29/2020 1:24 AM EST documented as of this encounter Care Teams Register Repairer Relationship Specialty Start Date End Date Patti Garnett NP [address] [place] [address] [place] [address] PCP - General 06/09/19 07/31/20 Calderon Batista DO [address] [place] [address] [email or web address] PCP - General Family Medicine 08/01/20 Esvin Reardon MD [address] [place] [address] [address] [place] [address] Historical LMR Provider 08/19/17 2 Heber Romero MD, MS [address] [place] [address] [email or web address] Historical LMR Provider 08/19/17 11/11/21 Patti Garnett NP [address] [place] [address] [place] [address] Historical LMR Provider 08/19/17 2 documented as of this encounter Additional Source Comments The information contained in this document represents components of the legal health record. It is not the complete legal health record.[facility]
--- OUTSIDE RECORDS SUMMARY | 2025-03-18 10:42 | XMS_ITS | Encounter Summary ---
Author Organization [facility] Address [address] [place] [phone] Phone Care Team Providers Care Correctional Agency Director Name Role Phone Calderon Batista DO Primary Care Provider [phone] Reason for Referral * Consultation (Within 3 days (urgent)) - Authorized Specialty Diagnoses / Procedures Referred By Contac t Referred To Contact Diagnoses Other fracture of T7-t8 thoracic vertebra, initial encounter for closed fracture Calderon Batista DO [address] [place] [address] Phone: tel: fax: [email or web address] Giovanni Foster MD, BERE [address] [place] [address] Phone: tel: fax: [email or web address]:[email or web address] Referral ID Status Reason Start Date Expiration Date V isits Requested Visits Authorized [id number] Authorized 03/16/2025 03/16/2026 12 12 Reason for Visit * Reason Onset Date Comments URGENT REFRRAL [id number] 03/16/2025 Encounter Details Date Type Department Care Team (Late st Contact Info) Description 03/16/2025 Telephone [employer] [address] [place] [address] Calderon Batista DO [address] [place] [address] [email or web address] [phone] Social History Tobacco Use Types Packs/Day Years [...] PM EDT documented as of this encounter Progress Notes * Calderon Batista DO - 03/16/2025 4:21 PM EDT signed * Milagro Kramer RN - 03/16/2025 2:52 PM EDT Notifed patient this caller was able to connect with his and pending a referral to Dr. Foster. * Milagro Kramer RN - 03/16/2025 2:38 PM EDT Spoke with Jesenia. She states [facility] notified them they do not see new fractures; only old. They told her the only provider around who manages new fractures is Dr. Foster at [facility]. She went to their office today and showed them all of the paperwork from the ED visit and an appointment was made for this Saturday. She is asking for a referral to: Dr. Cisco Gutierrez [address] [place]. Pended referral. * Milagro Kramer RN - 03/16/2025 2:13 PM EDT Spoke with patient. 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 His went to the office of Dr. Foster at [facility] this morning and patient has an appointment on Saturday 11:[address] Foster. Patient asks to call his on her cell phone at [phone]. Once she is reached, he would likea call back to know we have connected. * Ming Elmore - 03/16/2025 1:45 PM EDT Jesenia called back, the provider is Dr Foster @ [facility]. Central Support Fire Prevention Officer (Please do not reply to this user; this inbox is not monitored.) Thank you. * Halie Dubon, SY - 03/16/2025 10:55 AM EDT Left message for Jesenia, requested call back. To any staff- if you speak with Jesenia, please let her know that Dr. Cisco Foster is a vascular medicine provider at [facility], he is not an orthopedic surgeon. Lucas' referral can be faxed to [facility], but they do not have a provider by the name of Dr. Foster there. * Pamela Church - 03/16/2025 10:27 AM EDT Referral [id number] Dr. Lester Miller placed a referral to [facility] yesterday. Within the referral there is a communication note stating that called in and to fax to [phone]. The person who put that note and faxed it was a call center person. That is NOT a fax number for [facility]. That is the phonefor [facility] [place]. There is a message/tel enc from the emergency contact (Jesenia) for Dr. Kristin ORELLANA. Dr. Cisco Foster is at [facility] not [facility]. We do not have a referral to fax to this provider, we have one for ESTEBAN. Please advise as to where this fax should be sent. Thank you! documented in this encounter Plan of Treatment Upcoming Encounters Date Type Department Care Team (Late st Contact Info) Description 04/15/2025 10:20 AM EDT Office Visit [facility] [address] [place] [address] [place] [address] [email or web address] Scheduled Referrals Name Type Priority Associated Diagnoses Order Schedule Ambulatory referral to External Vascular Medicine Outpatient Referral Routine Other fracture of T7-t8 thoracic vertebra, initial encounter for closed fracture Ordered: 03/16/2025 documented as of this encounter Visit Diagnoses Diagnosis Other fracture of T7-t8 thoracic vertebra, initial encounter for closed fracture- Primary documented in this encounter Care Teams Correctional Agency Director Relationship Specialty Start Date End Date Calderon Batista DO [address] [place] [id number] [email or web address] PCP - General Family Medicine 08/01/20 documented as of this encounter Additional Source Comments The information contained in this document represents components of the legal health record. It is not the complete legal health record.[facility]
--- OUTSIDE RECORDS SUMMARY | 2025-03-18 10:42 | XMS_ITS | Encounter Summary ---
Author Organization [facility] Address [address] [place] [address] [place] [phone] Phone Care Team Providers Care Scale Balancer Name Role Phone Calderon Batitsa DO Primary Care Provider [phone] Encounter Details Date Type Department Care Team (Late st Contact Info) Description 03/08/2025 Procedure Pass [facility], Ct Scan - [address] [address] Social History Tobacco Use Types Packs/Day Years [...] 4:51 PM EDT Susan Cazares RN * [place] Suicide Severity Rating Scale (Screener/Recent Self-Report) Question [...] 04/15/2025 10:20 AM EDT Office Visit [facility] [address] [place] [address] [place] [address] @[email or web address] documented as of this encounter Visit Diagnoses Not on filedocumented in this encounter Care Teams Scale Balancer Relationship Specialty Start Date End Date [place] [address] [email or web address] PCP - General Family Medicine 08/01/20 documented as of this encounter Additional Source Comments The information contained in this document represents components of the legal health record. It is not the complete legal health record.[facility]
--- OUTSIDE RECORDS SUMMARY | 2025-03-18 10:42 | XMS_ITS | Clinical Summary ---
Author Organization [facility] Address [address] [place] [phone] Phone Care Team Providers Care Food Processing Scientist Name Role Phone Calderon Batista DO Primary Care Provider Allergies Active Allergy Reactions Criticality Noted Date Comments Lisinopril Other (See Comments) 10/22/2023 Meperidine Anaphylaxis,Vomiting High 10/24/2017 Medications aspirin 81 MG EC tablet Take 81 [...] as directed. Active digoxin (LANOXIN) 250 mcg tabletIndicatio ns:0.25 mg Take 125 mcg by mouth daily. Indications: 0.25 mg Active warfarin (COUMADIN) 5 MG tablet Take 5 mg by mouth as directed. Active losartan (COZAAR) 50 MG tablet Take 50 mg by mouth daily. Active lidocaine (LIDODERM) 5 % Place 1 patch onto the skin daily. Remove & Discard patch within 12 hours or as directed by 30 patch 5 Active gabapentin (NEURONTIN) 100 MG capsule Take 2 capsules (200 mg total) by mouth 3 (three) times a day. 5 Active memantine (NAMENDA) 5 MG tablet Take 5 mg by mouth. 5 Active gabapentin (NEURONTIN) 100 MG capsule Take 200 mg by mouth daily. 03/15/20 25 Discontinu ed(Dose adjustment ) Active Problems Problem Noted Date Diagnosed Date Other fracture of T7-t8 thor acic vertebra, initial encounter for closed fracture 03/15/2025 Overview (03/15/2025): Patient to follow-up with [facility] Assessment & Plan (03/15/2025 11:23 AM EDT): Patient eval with [facility] Discussed options regarding pain management as pain is improved now with Tylenol and lidocaine he is also on gabapentin for neuropathy discussed that adding additional pain medicines can increase risk of confusion and falls since his pain is better we continue with current medication Sensorineural hearing loss (SNHL), bilateral 10/2025 Cognitive impairment 03/15/2025 Assessment & Plan (03/15/2025 11:21 AM EDT): Recently started on memantine continue current treatment for now Fall at home, initial encounter 03/15/2025 Assessment & Plan (03/15/2025 10:38 AM EDT): No LOC s/p ER eval thoracic Fx as above Essential hypertension 04/25/2023 Assessment & Plan (03/15/2025 8:17 AM EDT): At goal continue current medication check BP at home record bring to next visit Impaired fasting glucose 09/07/2019 Coronary artery disease invo lving [place] coronary artery of [place] heart without angina pectoris 10/09/2018 Assessment & Plan (03/15/2025 8:15 AM EDT): Stable followed by cardiology continue idealize BP and lipids Assessment & Plan (10/09/2018 5:39 PM EST): [...] nature of his illness. Current use of associate sales anticoagulation 018 Assessment & Plan (10/09/2018 5:39 PM EST): Recommend holding anticoagulation if hemoptysis returns. Assessment & Plan (09/09/2018 9:50 AM EST): Would recommend holding anticoagulation if the hemoptysis continues or progresses. Will check a CBC prior to our next visit. 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 [address] [place] [address] Calderon Batista, URGENT REFRRAL [phone] 03/15/2025 10:20 AM EDT Office Visit [facility] [address] [place] [address] Calderon Batista, Other fracture of T7-t8 thoracic vertebra, initial encounter for closed fracture (Primary Dx); Coronary artery disease involving [place] coronary artery of [place] heart without angina pectoris; Obstructive sleep apnea of adult; Essential hypertension; Cognitive impairment; Fall at home, initial encounter; Atrial fibrillation, chronic 03/10/[address] [address] Calderon Batista DO Referral ([facility]) 03/08/2025 1:57 PM EDT - 03/08/2025 8:24 PM EDT Emergency [facility] [address] [place] [address] Discharge Disposition: Home or Self Care 03/08/[address] [address] 03/08/[address] [address] 03/05/[address] [place] [address] Calderon Batista, Request For Records from Last 3 Months Family History Medical History Relation Comments COPD [...] Orientation Straight 03/08/2025 1: 53 PM EDT Last Filed Vital Signs Vital Sign Reading Time Taken Comments Blood Pressure 120/79 03/15/2025 10:11 AM EDT Pulse 84 03/15/2025 10:11 AM EDT Temperature 36.4 ??C (97.5 ??F) 03/15/2025 10:11 AM E DT Respiratory Rate 16 03/08/2025 8:02 PM EDT Oxygen Saturation 98% 03/15/2025 10:11 AM EDT Inhaled Oxygen Concentration - - Weight 97 kg (213 lb 12.8 oz) 03/15/2025 10:11 A M EDT Height 182.9 cm (6' 0.01 ) 03/15/2025 10:11 AM E DT Body Mass Index 28.99 03/15/2025 10:11 AM EDT Plan of Treatment Upcoming Encounters Date Type Department Care Team (Late st Contact Info) Description 04/15/2025 10:20 AM EDT Office Visit [facility] Medicine [address] [place] [address] [place] [address] Calderon Batista DO [address] [place] [phone] [email or web address] Health Maintenance Due Date Last Done Comments DEPRESSION SCREENING 1952 LIPID PANEL 04/06/2010 04/06/2009, 03/05, 09/22/2007, Additional history exists BLOOD PRESSURE 09/15/2025 03/15/2025 Adult Td,Tdap Booster 09/28/2025 09/28/2015, 006 CREATININE LEVEL 03/08/2026 03/08/2025, 10/02/2018 POTASSIUM LEVEL 03/08/2026 03/08/2025, 10/02/2018 ZOSTER VACCINES Completed 05/10/2021, 05/2021, 02/20/2011 PNEUMOCOCCAL VACCINES (50+ years) Completed 07/11/2023, 08/15/2018, 09/28/2015, Additional history exists RSV VACCINE Completed 12/04/2023 COVID-19 VACCINE Completed 01/13/2025, , 08/31/2023, Additional history exists HEPATITIS A VACCINES Aged Out No long er eligible based on patient's age to complete this topic HIB VACCINES Aged Out No longer eligi ble based on patient's age to complete this topic MENINGOCOCCAL VACCINES (ACWY) Aged Out No longer eligible based on patient's age to complete this topic MENINGOCOCCAL VACCINES (B) Aged Out N o longer eligible based on patient's age to complete this topic Medical Devices Implanted Type Area Military Pilot Device Identifier Shelf Expiration Date Model / Serial / Lot Cardiac Stents Procedures Procedure Name Priority Date/Time Associated Diagnosis Comments PT-INR STAT 03/08/2025 5:40 PM EDT BASIC METABOLIC PANEL STAT 03/08/2025 5:40 PM EDT CBC AND DIFFERENTIAL STAT 03/08/2025 5:[address] ED TRAUMA CHEST WITH T-SPINE REFORMATS WITHOUT CONTRAST Routine 03/08/2025 5:[address] HEAD WITHOUT CONTRAST Routine 03/08/2025 5:24 PM EDT from Last 3 Months Results * (ABNORMAL) PT-INR (03/08/2025 5:40 PM EDT) Pathologist [facility] PT 31.5(H) 10.2 - 12.9 sec [facility] INR 2.5(H) 0.9 - 1.1 [facility] Comment:Therapeutic range fo r oral Vitamin K antagonists: 2.0-3.5 Blood 03/08/2025 5:40 PM EDT 03/08/2025 5:42 PM EDT Halie Sparks PA-C LAB BLOOD ORDERABLES Final Result [facility] [address] [place] [address] * (ABNORMAL) CBC and differential (03/08/2025 5:40 PM EDT) Pathologist [facility] WBC 9.75 4.00 - 11.00 K/uL [facility] RBC 4.85 4.50 - 5.90 M/uL [facility] HGB 14.4 13.5 - 17.5 g/dL [facility] HCT 44.5 41.0 - 53.0 % [facility] PLT 161 150 - 450 K/uL [facility] MCV 91.8 80.0 - 100.0 fL [facility] MCH 29.7 27.0 - 31.0 pg [facility] MCHC 32.4 32.0 - 36.0 g/dL [facility] RDW 13.7 11.5 - 14.5 % [facility] MPV 9.3 8.4 - 12.0 fL [facility] NRBC 0.00 0.00 /100 WBCs [facility] ABSOLUTE NRBC 0.00 0.00 K/uL [facility] DIFF METHOD Auto [facility] NEUTS 71.8 48.0 - 76.0 % [facility] LYMPHS 17.6(L) 18.0 - 41.0 % [facility] MONOS 8.6 4.0 - 11.0 % [facility] EOS 1.3 0.0 - 5.0 % [facility] BASOS 0.4 0.0 - 1.5 % [facility] Granulocytes, immature (%) 0.3 0.0 - 0.9 % [facility] ABSOLUTE NEUTS 6.99 1.92 - 7.60 K/uL [facility] ABSOLUTE LYMPHS 1.72 0.72 - 4.10 K/uL [facility] ABSOLUTE MONOS 0.84 0.16 - 1.10 K/uL [facility] ABSOLUTE EOS 0.13 0.00 - 0.50 K/uL [facility] ABSOLUTE BASOS 0.04 0.00 - 0.15 K/uL [facility] Granulocytes, immature 0.03 0.00 - 0.09 K/uL [facility] Blood 03/08/2025 5:40 PM EDT 03/08/2025 5:42 PM EDT us Halie Sparks PA-C LAB BLOOD ORDERABLES Final Result [facility] [address] [place] [address] * (ABNORMAL) Basic metabolic panel (03/08/2025 5:40 PM EDT) [facility] SODIUM 140 133 - 146 mmol/L [facility] CHLORIDE 102 96 - 108 mmol/L [facility] POTASSIUM 4.5 3.3 - 5.1 mmol/L [facility] CO2 29 21 - 35 mmol/L [facility] BUN 20(H) 6 - 19 mg/dL [facility] CREATININE 1.00 0.5 - 1.5 mg/dL [facility] GLUCOSE 108(H) 70 - 99 mg/dL [facility] CALCIUM 9.4 8.4 - 10.3 mg/dL [facility] EGFR 74 >59 mL/min/1.7 3m2 [facility] Comment:Estimated glomerular filtration rate calculated using the CKD-EPI refit equation. ANION GAP 14 10 - 20 mmol/L [facility] Blood 03/08/2025 5:40 PM EDT 03/08/2025 5:42 PM EDT Halie Sparks PA-C LAB BLOOD ORDERABLES Final Result Performing Organization Address City/State/[facility] Co de Phone Number [address] [address] * CT HEAD WITHOUT CONTRAST (03/08/2025 5:24 PM EDT) Anatomical Region Laterality Modality Head Computed Tomogra phy 03/08/2025 6:04 PM EDT Impressions 03/08/2025 6:53 PM EDT 1. ??No acute intracranial findings. 2. ??Exam ended prematurely at patient request prior to completion of cervical spine CT. ATTESTATION: I, Tyree Gonzalez as teaching physician, have reviewed the images for this case and if necessary edited the report originally created by Bashir Palm. Narrative 03/08/2025 6:[address] HEAD WITHOUT CONTRAST Referring clinician's provided indication for this examination in Epic: * Head trauma, minor (Age >= 65y) TECHNIQUE: CT of the head was performed without intravenous contrast using tailored dose modulation techniques. Images were reconstructed in the axial, coronal, and sagittal planes. COMPARISON: None FINDINGS: Motion degraded exam. Brain Parenchyma: No midline shift, mass effect, parenchymal hemorrhage, or evidence of acute territorial infarct. Hypodensities in the periventricular white matter, likely a manifestation of chronic small vessel disease. Ventricular System and Extra-Axial Spaces: The ventricles and sulci are prominent. No extra-axial fluid collections. Basilar cisterns are patent. No hydrocephalus. Osseous and Extracranial Structures: No calvarial fracture or significant soft tissue hematoma. Layering secretions in the sphenoid sinus.. No orbital abnormality. Procedure Note Tyree Gonzalez MD - 03/08/2025 CT HEAD WITHOUT CONTRAST Referring clinician's provided indication for this examination in [facility]: *Head trauma, minor (Age >= 65y) TECHNIQUE: CT of the head was performed without intravenous contrast usingtailored dose modulation techniques. Images were reconstructed in theaxial, coronal, and sagittal planes. COMPARISON: None FINDINGS: Motion degraded exam. Brain Parenchyma: No midline shift, mass effect, parenchymal hemorrhage,or evidence of acute territorial infarct. Hypodensities in theperiventricular white matter, likely a manifestation of chronic smallvessel disease. Ventricular System and Extra-Axial Spaces: The ventricles and sulci areprominent. No extra-axial fluid collections. Basilar cisterns are patent.No hydrocephalus. Osseous and Extracranial Structures: No calvarial fracture or significantsoft tissue hematoma. Layering secretions in the sphenoid sinus.. Noorbital abnormality. IMPRESSION: 1. No acute intracranial findings. 2. Exam ended prematurely at patient request prior to completion ofcervical spine CT. ATTESTATION: I, Tyree Gonzalez as teaching physician, have reviewed theimages for this case and if necessary edited the report originally createdby Bashir Palm. us Halie Sparks PA-C IMG CT HEAD/NECK Rosaline renteria Result * CT ED TRAUMA CHEST WITH T-SPINE REFORMATS WITHOUT CONTRAST (03/08/2025 5:24 PM EDT) [facility] IMG FIRE WATCHMAN COMMENT Acute chalk stick type fracture through the T7-T8 interspace / adjacent endplates. No retropulsion or posterior element involvement. [facility] Anatomical Region Laterality Modality Chest Computed Tomogra phy 03/08/2025 6:18 PM EDT Impressions 03/08/2025 6:37 PM EDT 1. ??Rigid spine with acute chalk stick type fracture through the T7-T8 interspace / adjacent endplates with mild widening of the anterior disc space. No retropulsion, posterior element involvement or vertebral height loss. \ 2. ??No acute traumatic injury to the chest soft tissues. 1. ??A clinically significant result was initiated on 03/08/2025 6:37 PM, Message ID [id number]. Narrative 03/08/2025 6:[address] ED TRAUMA CHEST WITH T-SPINE REFORMATS WITHOUT CONTRAST Referring clinician's provided indication for this examination in Epic: * Chest trauma, minor TECHNIQUE: CT scans of: 1. ??Chest and upper abdomen without intravenous contrast. Multiplanar reformations were created. 2. ??Thoracic spine, reconstructed from the chest source data. Multiplanar reformations were created. COMPARISON: CT CHEST WITH CONTRAST FINDINGS: CHEST: Ports and Devices: None. Lungs: Somewhat degraded by motion artifact. Triangular subpleural focus in the lateral right upper lobe is likely an intrapulmonary lymph node. No lung nodules or consolidation. No pulmonary contusion or laceration. Pleura: No pleural effusion. No pneumothorax or hemothorax. Lymph Nodes: No enlarged supraclavicular, axillary, mediastinal or hilar lymph nodes. Mediastinum: Cardiomegaly with biatrial enlargement. No pericardial effusion. No mediastinal hematoma. Coronary stenting and calcifications. No thyroid nodules. Upper Abdomen: No acute abnormality detected in the visualized upper abdomen. Absence of intravenous contrast limits sensitivity for detecting solid organ findings. Bilateral renal cysts. Partially visualized umbilical hernia. Musculoskeletal: No acute rib or sternal fracture. THORACIC SPINE: Alignment and Curvature: Minimal dorsal angulation of T7 on T8 due to fracture below. Alignment in the remaining spine is preserved. Vertebrae: Rigid spine due to diffuse idiopathic skeletal hyperostosis with acute fracture through the T7 inferior endplate/T8 superior endplate with mild widening of the T7-8 disc space. No retropulsion, extension of the posterior elements, or significant height loss. Deformities involving the tips of the T7 inferior articular processes are chronic. Disc Spaces: Mild widening of the anterior T7-8 disc space. Soft Tissues: No paravertebral hematoma. Procedure Note Tyree Gonzalez MD - 03/08/2025 CT ED TRAUMA CHEST WITH T-SPINE REFORMATS WITHOUT CONTRAST Referring clinician's provided indication for this examination in Epic: *Chest trauma, minor TECHNIQUE: CT scans of: 1. Chest and upper abdomen without intravenous contrast. Multiplanarreformations were created. 2. Thoracic spine, reconstructed from the chest source data. Multiplanarreformations were created. COMPARISON: CT CHEST WITH CONTRAST FINDINGS: CHEST: Ports and Devices: None. Lungs: Somewhat degraded by motion artifact. Triangular subpleural focusin the lateral right upper lobe is likely an intrapulmonary lymph node. [place] nodules or consolidation. No pulmonary contusion or laceration. Pleura: No pleural effusion. No pneumothorax or hemothorax. Lymph Nodes: No enlarged supraclavicular, axillary, mediastinal or hilarlymph nodes. Mediastinum: Cardiomegaly with biatrial enlargement. No pericardialeffusion. No mediastinal hematoma. Coronary stenting and calcifications.No thyroid nodules. Upper Abdomen: No acute abnormality detected in the visualized upperabdomen. Absence of intravenous contrast limits sensitivity for detectingsolid organ findings. Bilateral renal cysts. Partially visualizedumbilical hernia. Musculoskeletal: No acute rib or sternal fracture. THORACIC SPINE: Alignment and Curvature: Minimal dorsal angulation of T7 on T8 due tofracture below. Alignment in the remaining spine is preserved. Vertebrae: Rigid spine due to diffuse idiopathic skeletal hyperostosiswith acute fracture through the T7 inferior endplate/T8 superior endplatewith mild widening of the T7-8 disc space. No retropulsion, extension ofthe posterior elements, or significant height loss. Deformities involvingthe tips of the T7 inferior articular processes are chronic. Disc Spaces: Mild widening of the anterior T7-8 disc space. Soft Tissues: No paravertebral hematoma. IMPRESSION: 1. Rigid spine with acute chalk stick type fracture through the T7-C9moryaexxmj / adjacent endplates with mild widening of the anterior discspace. No retropulsion, posterior element involvement or vertebral heightloss. \ 2. No acute traumatic injury to the chest soft tissues. 1. A clinically significant result was initiated on 03/08/2025 6:37 PM,Message ID [id number]. Halie Prado Clare MENJIVAR IMG CT CHEST Final Result from Last 3 Months Insurance MEDICARE PART A & B [employer] MEDEX SUPPLEMENT MEDICARE PART A & B Member Subscriber Plan / Payer (Ef fective 2005-Present) Name:Lucas Mathews Member ID:[id number] Relation to Subscriber:Self Name:Lucas Mathews Subscriber ID:[id number] Payer ID:[id number] Group ID:Not on file Type:Medicare Address: [employer] [address] [place] [phone] [employer] MEDEX SUPPLEMENT MEDICARE PART A & B [employer] MEDEX SUPPLEMENT MEDICARE PART A & B Member Subscriber Plan / Payer ( fective 2005-Present) Name:Lucas Mathews Member ID:[id number] Relation to Subscriber:Self Name:Lucas Mathews Subscriber ID:[id number] Payer ID:[id number] Group ID:Not on file Type:Medicare Address: [employer] [address] [place] [phone] [employer] CR[employer] MEDEX SUPPLEMENT MEDICARE PART A & B [employer] MEDEX SUPPLEMENT MEDICARE PART A & B [employer] MEDEX SUPPLEMENT MEDICARE PART A & B [employer] MEDEX SUPPLEMENT MEDICARE PART A & B [employer] MEDEX SUPPLEMENT MEDICARE PART A & B [employer] MEDEX SUPPLEMENT Member Subscriber Plan / Payer (Ef fective 2005-Present) Name:Lucas Mathews Relation to Subscriber:Self Name:Lucas Mathews Payer ID:[id number] (NAIC) Type:Indemnity Address: [facility] [id number] [place] [id number] Care Teams Food Processing Scientist Relationship Specialty Start Date End Date Calderon Batista DO [address] [place] [phone] [email or web address] PCP - General Family Medicine 08/01/20 Additional Source Comments The information contained in this document represents components of the legal health record. It is not the complete legal health record.[facility]
--- OUTSIDE RECORDS SUMMARY | 2025-03-18 10:42 | XMS_ITS | Encounter Summary ---
Author Organization [facility] Address [address] [place] [address] [place] [address] Phone Care Team Providers Care Manager Global Communications Name Role Phone Calderon Batista DO Primary Care Provider Encounter Details Date Type Department Care Team (Late st Contact Info) Description 07/09/2023 Procedure Pass [facility] Endoscopy Admitting Dept Virtual Department [address] [place] [address] Social History Tobacco Use Types Packs/Day Years [...] Description 04/15/2025 10:20 AM EDT Office Visit [facility] [address] [place] [address] Calderon Batista DO [address] [place] [phone] [email or web address] documented as of this encounter Visit Diagnoses Not on filedocumented in this encounter Care Teams Manager Global Communications Relationship Specialty Start Date End Date Calderon Batista DO [address] [place] [phone] [email or web address] PCP - General Family Medicine 08/01/20 documented as of this encounter Additional Source Comments The information contained in this document represents components of the legal health record. It is not the complete legal health record.[facility]
--- OUTSIDE RECORDS SUMMARY | 2025-03-18 10:42 | XMS_ITS | Encounter Summary ---
Author Organization [facility] Address [address] [place] [address] Phone Care Team Providers Care Stablehand Name Role Phone Calderon Batista DO Primary Care Provider [phone] Reason for Visit * Reason Onset Date Comments Request For Records 03/05/2025 Encounter Details Date Type Department Care Team (Late st Contact Info) Description 03/05/2025 Telephone [facility] [address] [place] [address] Calderon Batista DO [address] [place] [address] [email or web address] Request For Records Social History Tobacco Use Types Packs/Day Years [...] your housing situation today? I have robby damico 03/08/2025 How many times have you move [...] 4:51 PM EDT Susan Cazares RN * [place] Suicide Severity Rating Scale (Screener/Recent Self-Report) Question Answer Date of Assessment Author 1. Wish to be (Past 1 Month) No 03/08/2025 4:51 PM EDT Susan Cazares RN 2. Non-Specific Active Suicidal Thoughts (Past 1 Month) No 03/08/2025 4:51 PM EDT Susan Cazares, SY 6. Suicidal Behavior (Lifetime) No 03/08/2025 4:51 PM EDT Susan Cazares RN documented as of this encounter Progress Notes * Mariana Tong - 03/08/2025 10:52 AM EDT Pt called in requesting to speak with a nurse immediately. I asked him if he was having some type of emergency and he stated that he is not. He states he was supposed to come to the office today at 11am to bring in some lab results, but he just woke up and will not be there at 11am. He states he has questions about procedures. I offered to send a message to the office, but he states he already waited 10 min on hold and does not want to wait for a call back. I apologized that I am unable to transfer him directly to a nurse right away as he requests. The pt ended the call abruptly. Central Support Tool And Die Engineer (Please do not reply to this user; this inbox is not monitored.) Thank you. * Hue Tavares - 03/05/2025 4:18 PM EDT Pt stated he was with Dr. Batista and he is bringing lab work to the office on Thursday 03/08 around 11amto be added to his chart. Advised pt he has to have the rest of his medical records sent over from [facility] in order to schedule with Dr. Batista. Pt stated his last visit was 1:30pm 01/[address] Batista at [facility]. Pt stated that's the day he requested his records be sent to our office. Pt stated hemay need assistance contacting [facility]. I Central Support Tool And Die Engineer (Please do not reply to this user; this inbox is not monitored.) Thank you. documented in this encounter Plan of Treatment Upcoming Encounters Date Type Department Care Team (Late st Contact Info) Description 04/15/2025 10:20 AM EDT Office Visit [address] [place] [address] [place] [address] [email or web address] documented as of this encounter Visit Diagnoses Not on filedocumented in this encounter Care Teams Stablehand Relationship Specialty Start Date End Date [place] [address] [email or web address] PCP - General Family Medicine 08/01/20 documented as of this encounter Additional Source Comments The information contained in this document represents components of the legal health record. It is not the complete legal health record.[facility]
--- OUTSIDE RECORDS SUMMARY | 2025-03-18 10:42 | XMS_ITS | Encounter Summary ---
Author Organization [facility] Address [address] [place] [address] Phone Care Team Providers Care Bi Application Developer Name Role Phone Esvin Reardon MD Unavailable [phone] Heber Romero MD, MS Unavailable Patti Garnett NP Unavailable [phone] Calderon Batista DO Primary Care Provider [phone] Encounter Details Date Type Department Care Team (Late st Contact Info) Description 11/18/2020 Transcribe Orders Virtual Department [address] [place] [address] Brigette Garcia, COREMAKER HELPER [address] [place] [address] Nasal congestion (Primary Dx) Social History Tobacco [...] Description 04/15/2025 10:20 AM EDT Office Visit [facility] [address] [place] [address] Calderon Batista DO [address] [place] [address] [email or web address] documented as of this encounter Results * COVID-19 PCR Order (11/19/2020 12:21 PM EST) COVID Testing Status Specimen received in analyzing lab. [facility] Symptomatic? YES [facility] Other 11/19/2020 12:2 1 PM EST 11/19/2020 5:27 PM EST us Brigette Garcia COREMAKER HELPER BODY FLUIDS AND STOOLS ORDER DARSHANA Final Result Performing Organization Address City/State/[facility] Co de Phone Number [facility] [address] [place] [address] [facility] [address] [place] [id number] documented in this encounter Visit Diagnoses Diagnosis Nasal congestion- Primary Other diseases of nasal cavity and sinuses documented in this encounter Additional Health Concerns Infection Onset Date Last Indicated Resolved Time CoV-Risk 11/19/2020 11/19/2020 11/29/2020 1:24 AM EST documented as of this encounter Care Teams Bi Application Developer Relationship Specialty Start Date End Date Calderon Batista DO [address] [place] [address] [email or web address] PCP - General Family Medicine 08/01/20 Esvin Reardon MD [address] [place] [address] Historical LMR Provider 08/19/17 2 Heber Romero MD, MS [address] [place] [id number] [email or web address] Historical LMR Provider 08/19/17 11/11/21 Patti Garnett NP [address] [place] [address] [place] [address] Historical LMR Provider 08/19/17 2 documented as of this encounter Additional Source Comments The information contained in this document represents components of the legal health record. It is not the complete legal health record.[facility]
--- NOTE | 2025-03-18 14:29 | MHC.AU.HA3 ---
Hearing Instrument Follow-Up- Binaural Date of Visit: 03/18/25 Right Ear: Milind, Model, Color, Serial Number: Brianna Brooks [id number]-[id number] SN: [id number] Color: Silver Burt Ui Lead Developer Repair Warranty: 03/19/2025 Ui Lead Developer Loss and Damage Warranty: 03/19/2025 [facility] Service Plan: 03/19/2025 Battery Size: Rechargeable Rn Visiting/Slim Tube: 2M Earmold/Dome/CShell/SlimTip:c-shell w/ canal lock SN: [id number] Type of Wax Guard: CeruStop Dispensed By: [facility] Date of Fittin01/01/2022 Left Ear: Milind, Model, Color, Serial Number: Brianna Brooks [id number] SN: [id number] Color: Silver Burt Ui Lead Developer Repair Warranty: 03/19/2025 Ui Lead Developer Loss and Damage Warranty: 03/19/2025 [facility] Service Plan: 03/19/2025 Battery Size: Rechargeable Rn Visiting/Slim Tube: 2M Earmold/Dome/CShell/SlimTip: c-shell w/ canal lock SN: [id number] Type of Wax Guard: CeruStop Dispensed By: [facility] Date of Fittin01/01/2022 Follow-Up Summary: Lucas is seen for follow up. End of warranty and service plan. Reports feeling like the hearing aids do not make any noticeable difference. He mentioned that he unplugs the big 6 dealer around 12:30 or 1 AM every night if he is awake and sees that they are fully charged and then leaves them until the morning to put on despite being instructed to leave the hearing aids in the big 6 dealer all night per note from his most recent visit. Reminded of recommended charging procedure. Found both hearing aids with clogged wax guards. Discussed how this would lead Lucas to perceive that the hearing aids aren't doing anything for him. Demonstrated wax guard change procedure. Reminded of importance of consistent wear as Lucas is still working on getting used to wearing hearing aids again. Recommendations: Recommendations: Hearing instrument follow-up or maintenance as needed. Diagnosis Code(s): Primary Diagnosis: H90.3 Bilateral Sensorineural Hearing Loss Signature: Provider: Brett Miller, [facility]
== END 2025-03-18 09:50 | disposition home or self-care (01) ==
LOC: HO.HAP 09:49
PROVIDERS: Visit Provider Family Medicine
DX: Z13.89 Encounter for screening for other disorder (principal)